=== PATIENT | male | born 1950 | race American Indian/Alaskan Native ===

== ENCOUNTER 2018-04-16 08:37 | Day surgery (SDC) | payer OTHER ==
[2018-04-16] MEDS ORDERED: Lactated Ringer's 1,000 ML IV ONE (09:50)
[2018-04-16] MEDS ORDERED: Midazolam 2 MG/2 ML VIAL ONE (09:54)
[2018-04-16] MEDS ORDERED: Lidocaine Hydrochloride 10 ML INJ ONE (09:54)
[2018-04-16] MEDS ORDERED: Propofol 10 mg/ml Inj (20 ML) ONE (09:54)
[2018-04-16] MEDS ORDERED: Lactated Ringer's 500 ML IV SCH (10:15)
[2018-04-16 10:45] VITALS: BMI 22.1
[2018-04-16 10:59] VITALS: TEMP 97.1
[2018-04-16 11:10] VITALS: RESP 19; O2SAT 100
[2018-04-16 13:03] VITALS: PULSE 73
[2018-04-16 13:06] VITALS: BP 137/86
== END 2018-04-16 11:45 | disposition home or self-care (01) ==
LOC: C.ENDO 08:37
PROVIDERS: ATTEND Internal Medicine Gastroenterology
DX: D12.5 Benign neoplasm of sigmoid colon (principal); Z12.11 Encounter for screening for malignant neoplasm of colon; K29.60 Other gastritis without bleeding; K64.1 Second degree hemorrhoids; K57.30 Diverticulosis of large intestine without perforation or abscess without bleeding; E11.9 Type 2 diabetes mellitus without complications; I10 Essential (primary) hypertension; J44.9 Chronic obstructive pulmonary disease, unspecified; F17.200 Nicotine dependence, unspecified, uncomplicated
CPT/HCPCS: 43239; 45380; 82948; 88305; 88342; J2250; J2704; J7120